=== PATIENT | male | born 1985 | race American Indian/Alaskan Native ===

== ENCOUNTER 2017-09-12 19:29 | Emergency (ER) | payer SELFPAY ==
[2017-09-12 19:54] VITALS: BP 119/76
--- NOTE | 2017-09-12 20:39 | Emergency Department Report ---
ED ENT HPI - General Chief complaint: Dental/Oral Stated complaint: MOUTH PAIN Time Seen by Provider: 09/12/17 20:18 Source: patient Mode of arrival: Ambulatory Limitations: No Limitations - History of Present Illness Initial comments: This is a 32-year-old male nontoxic, well nourished in appearance, no acute signs of distress presents to the ED with c/o of right-sided toothache 2 weeks. Patient denies any facial swelling, drooling, fever, chills, nausea, vomiting, headache or stiff neck. Patient denies falling over the dentist due to no availability's. Patient denies any allergies or significant past medical history. MD complaint: tooth pain -: week(s) (2) Location: tooth # 1 - toothache Severity: mild Severity scale (0 -10): 8 Quality: aching Consistency: constant Improves with: none Worsens with: none Associated Symptoms: gum swelling, toothache. denies: fever, cough, pain with swallowing, sore throat, tinnitus, hearing loss, discharge from ear, rhinorrhea - Related Data Previous Rx's Medication Instructions Recorded Last Taken Type Amoxicillin/K Clav Tab [Augmentin 1 tab PO Q12HR #20 tab 09/12/17 Unknown Rx 875 mg] Chlorhexidine Mouthwash [Peridex] 15 ml MM BID #1 bottle 09/12/17 Unknown Rx Ibuprofen [Motrin] 600 mg PO Q8H PRN #30 tablet 09/12/17 Unknown Rx Allergies Allergy/AdvReac Type Severity Reaction Status Date / Time No Known Allergies Allergy Unverified 09/12/17 19:46 ED Dental HPI - General Chief complaint: Dental/Oral Stated complaint: MOUTH PAIN Time Seen by Provider: 09/12/17 20:18 Source: patient Mode of arrival: Ambulatory Limitations: No Limitations - Related Data Previous Rx's Medication Instructions Recorded Last Taken Type Amoxicillin/K Clav Tab [Augmentin 1 tab PO Q12HR #20 tab 09/12/17 Unknown Rx 875 mg] Chlorhexidine Mouthwash [Peridex] 15 ml MM BID #1 bottle 09/12/17 Unknown Rx Ibuprofen [Motrin] 600 mg PO Q8H PRN #30 tablet 09/12/17 Unknown Rx Allergies Allergy/AdvReac Type Severity Reaction Status Date / Time No Known Allergies Allergy Unverified 09/12/17 19:46 ED Review of Systems ROS: Stated complaint: MOUTH PAIN Other details as noted in HPI Constitutional: denies: chills, fever Eyes: denies: eye pain, eye discharge, vision change ENT: dental pain. denies: ear pain, throat pain Respiratory: denies: cough, shortness of breath, wheezing Cardiovascular: denies: chest pain, palpitations Endocrine: no symptoms reported Gastrointestinal: denies: abdominal pain, nausea, diarrhea Genitourinary: denies: urgency, dysuria Musculoskeletal: denies: back pain, joint swelling, arthralgia Skin: denies: rash, lesions Neurological: denies: headache, weakness, paresthesias Psychiatric: denies: anxiety, depression Hematological/Lymphatic: denies: easy bleeding, easy bruising ED Past Medical Hx - Past Medical History Previous Medical History?: No - Surgical History Past Surgical History?: Yes Additional Surgical History: hernia repair - Social History Smoking Status: Current Every Day Smoker Substance Use Type: Alcohol, Marijuana - Medications Home Medications: Home Medications Medication Instructions Recorded Confirmed Last Taken Type Amoxicillin/K Clav Tab [Augmentin 1 tab PO Q12HR #20 tab 09/12/17 Unknown Rx 875 mg] Chlorhexidine Mouthwash [Peridex] 15 ml MM BID #1 bottle 09/12/17 Unknown Rx Ibuprofen [Motrin] 600 mg PO Q8H PRN #30 tablet 09/12/17 Unknown Rx ED Physical Exam - General Limitations: No Limitations General appearance: alert, in no apparent distress - Head Head exam: Present: atraumatic, normocephalic - Eye Eye exam: Present: normal appearance - ENT ENT exam: Present: mucous membranes moist, TM's normal bilaterally, normal external ear exam - Expanded ENT Exam Expanded Ear exam: Present: normal external inspection Mouth exam: Present: normal external inspection, tongue normal. Absent: drooling, trismus, muffled voice, tongue elevation, laceration Teeth exam: Present: dental caries, fractured tooth # (32), dental tenderness # (32), gingival enlargement, other (No abscess or facial swelling noted. ) 1 - Fractured, Dental Tenderness Throat exam: Positive: normal inspection. Negative: tonsillar erythema, tonsillomegaly, tonsillar exudate, R peritonsillar mass, L peritonsillar mass - Neck Neck exam: Present: normal inspection, full ROM. Absent: tenderness, meningismus, lymphadenopathy, thyromegaly - Respiratory Respiratory exam: Present: normal lung sounds bilaterally. Absent: respiratory distress, wheezes, rales, rhonchi, stridor, chest wall tenderness, accessory muscle use, decreased breath sounds, prolonged expiratory - Cardiovascular Cardiovascular Exam: Present: regular rate, normal rhythm. Absent: systolic murmur, diastolic murmur, rubs, gallop - GI/Abdominal GI/Abdominal exam: Present: soft, normal bowel sounds - Rectal Rectal exam: Present: deferred - Extremities Exam Extremities exam: Present: normal inspection - Back Exam Back exam: Present: normal inspection - Neurological Exam Neurological exam: Present: alert, oriented X3 - Psychiatric Psychiatric exam: Present: normal affect, normal mood - Skin Skin exam: Present: warm, dry, intact, normal color. Absent: rash ED Course Vital Signs 09/12/17 19:46 Temperature 99.3 F Pulse Rate 73 Respiratory 18 Rate Blood Pressure 119/76 O2 Sat by Pulse 99 Oximetry - Reevaluation(s) Reevaluation #1: 09/12/17 20:42 Patient is speaking in full sentences with no signs of distress noted. Critical care attestation.: If time is entered above; I have spent that time in minutes in the direct care of this critically ill patient, excluding procedure time. ED Disposition Clinical Impression: Dental caries, Gingivitis Disposition: DC-01 TO HOME OR SELFCARE Is pt being admited?: No Does the pt Need Aspirin: No Condition: Stable Instructions: Dental Caries (ED), Gingivitis (ED) Additional Instructions: Follow-up with a dentist in 3-5 days or if symptoms worsen and continue return to emergency room as soon as possible. Prescriptions: Amoxicillin/K Clav Tab [Augmentin 875 mg] 1 tab PO Q12HR #20 tab Chlorhexidine Mouthwash [Peridex] 15 ml MM BID #1 bottle Ibuprofen [Motrin] 600 mg PO Q8H PRN #30 tablet PRN Reason: Pain Referrals: PRIMARY CAREMD [Referring] - 3-5 Days CAROLE PATINO MD [Staff Physician] - 3-5 Days [facility] [Outside] - 3-5 Days Forms: Work/School Release Form(ED)
[2017-09-12] MEDS ORDERED: MOTRIN PO ONE (20:44)
== END 2017-09-12 20:50 | disposition home or self-care (01) ==
LOC: ED 19:29
DX: K05.10 Chronic gingivitis, plaque induced (principal); F17.200 Nicotine dependence, unspecified, uncomplicated; F12.10 Cannabis abuse, uncomplicated; K02.9 Dental caries, unspecified
CPT/HCPCS: 99282

== ENCOUNTER 2021-04-02 08:46 | Emergency (ER) | payer SELFPAY ==
[2021-04-02 10:02] VITALS: BP 146/90
[2021-04-02] MEDS ORDERED: HYDROcodone/ACETAMINOPHEN 5-325 MG TAB PO ONE (10:10)
--- NOTE | 2021-04-02 10:12 | Emergency Department Report ---
ED Lower Extremity HPI - General Chief Complaint: Extremity Injury, Lower Stated Complaint: SEVERE PAIN IN LT CALF Time Seen by Provider: 04/02/21 10:08 Source: patient Mode of arrival: Ambulatory Limitations: No Limitations - History of Present Illness Initial Comments: Patient presents with left leg pain. This is unilateral. It is described as an aching pain that is worsened over the last day or 2. There is no known trauma. Has no fevers or chills but there is no cough congestion. He has noticed swelling in the leg as well. His calf feels very tense and tight to him. He is never had this before. Patient states that he has no chest pain or shortness of breath. Is no pain or swelling about the knee. The pain is constant. It is worse with palpation, movement, and ambulation. He has not noticed any alleviating factors. Again, he has never had symptoms like this before. Patient has no history of recent travel or trauma. There is no family history immediately of DVT, but he believes that there are second-degree relatives with DVT. - Related Data Previous Rx's Medication Instructions Recorded Last Taken Type Amoxicillin/K Clav Tab [Augmentin 1 tab PO Q12HR #20 tab 09/12/17 04/01/21 Rx 875 mg] Chlorhexidine Mouthwash [Peridex] 15 ml MM BID #1 bottle 09/12/17 04/01/21 Rx Enoxaparin Sodium [Lovenox] 100 mg SQ BID #10 syringe 04/02/21 Unknown Rx HYDROcodone/APAP 5-325 [[place] 1 each PO Q6HR PRN #10 tablet 04/02/21 Unknown Rx 5/325] Warfarin [Coumadin] 5 mg PO QDAY #30 tablet 04/02/21 Unknown Rx Allergies Allergy/AdvReac Type Severity Reaction Status Date / Time No Known Allergies Allergy Verified 04/02/21 10:02 ED Review of Systems ROS: Stated complaint: SEVERE PAIN IN LT CALF Other details as noted in HPI Comment: All other systems reviewed and negative Constitutional: denies: fever Eyes: denies: eye pain ENT: denies: throat pain Respiratory: denies: cough Cardiovascular: denies: chest pain Endocrine: denies: unexplained weight gain Gastrointestinal: denies: abdominal pain Genitourinary: denies: dysuria Musculoskeletal: denies: back pain Skin: denies: rash Neurological: denies: headache Hematological/Lymphatic: denies: easy bruising ED Past Medical Hx - Past Medical History Previous Medical History?: No - Surgical History Additional Surgical History: hernia repair - Family History Family history: other (DVT and second-degree relative) - Social History Smoking Status: Current Every Day Smoker Substance Use Type: Alcohol, Marijuana, Other (We discussed tobacco cessation x3 minutes) - Medications Home Medications: Home Medications Medication Instructions Recorded Confirmed Last Taken Type Amoxicillin/K Clav Tab [Augmentin 1 tab PO Q12HR #20 tab 09/12/17 04/02/21 04/01/21 Rx 875 mg] Chlorhexidine Mouthwash [Peridex] 15 ml MM BID #1 bottle 09/12/17 04/02/21 04/01/21 Rx Enoxaparin Sodium [Lovenox] 100 mg SQ BID #10 syringe 04/02/21 Unknown Rx HYDROcodone/APAP 5-325 [[place] 1 each PO Q6HR PRN #10 tablet 04/02/21 Unknown Rx 5/325] Warfarin [Coumadin] 5 mg PO QDAY #30 tablet 04/02/21 Unknown Rx ED Physical Exam - General Limitations: No Limitations General appearance: alert, in no apparent distress - Head Head exam: Present: atraumatic, normocephalic, normal inspection - Eye Eye exam: Present: normal appearance, EOMI. Absent: scleral icterus - ENT ENT exam: Present: normal exam, normal external ear exam - Neck Neck exam: Present: full ROM. Absent: meningismus - Respiratory Respiratory exam: Absent: respiratory distress - Cardiovascular Cardiovascular Exam: Present: regular rate, normal rhythm, other (Normal pulses) - GI/Abdominal GI/Abdominal exam: Present: other (Flat) - Extremities Exam Extremities exam: Present: calf tenderness (Left side. Calf is tense. There is 1+ pitting edema on the left compared to the right.) - Back Exam Back exam: Absent: CVA tenderness (R), CVA tenderness (L) - Neurological Exam Neurological exam: Present: alert, oriented X3, abnormal gait (Antalgic). Absent: motor sensory deficit - Psychiatric Psychiatric exam: Present: normal affect, normal mood - Skin Skin exam: Present: warm, dry ED Course Vital Signs 04/02/21 10:01 Temperature 98.8 F Pulse Rate 99 H Respiratory 16 Rate Blood Pressure 146/90 [Right] O2 Sat by Pulse 99 Oximetry - Reevaluation(s) Reevaluation #1: 04/02/21 10:10 Venous Doppler was ordered. Analgesics were ordered. Old records reviewed. Reevaluation #2: 04/02/21 10:37 Verbal report from the radiologic technician states that the patient has a clot from his femoral vein down through the common peroneal. Labs have been ordered to evaluate platelets and renal function. Medications can be started. Reevaluation #3: 04/02/21 11:58 Radiology official report was noted. An addendum was required as the tech had reported a positive study and the radiologist read this as a negative study. The radiologic technician did discuss this with radiology and it was noted to be positive. Based on cost of medication, Lovenox and warfarin is the most inexpensive option for this treatment. This has been discussed with the patient. He was dosed with Lovenox here. He will be dosed with Lovenox and warfarin at home. He is referred to PCP for recheck as he does not have a primary care physician. ED Lower Extremity MDM - Lab Data Result diagrams: 04/02/21 10:44 04/02/21 10:44 - Medical Decision Making Patient presented secondary to nontraumatic leg pain. He was found to have DVT. He does not have cerulea dolens. Patient has no chest pain or shortness of breath or hypoxia. He does not have symptoms of a suggest pulmonary embolism. He was treated empirically with Lovenox and warfarin. He is referred to a primary care physician for outpatient follow-up and management. Etiology for the DVT is unknown. He has a remote family history but no other risk factor. Critical Care Time: No Critical care attestation.: If time is entered above; I have spent that time in minutes in the direct care of this critically ill patient, excluding procedure time. ED Disposition Clinical Impression: Pain of left calf, Leg edema, left, DVT (deep venous thrombosis) Disposition: 01 HOME / SELF CARE / HOMELESS Is pt being admited?: No Does the pt Need Aspirin: No Condition: Stable Instructions: Bleeding Precautions When on Anticoagulant Therapy, Adult, Deep Vein Thrombosis, Venous Thromboembolism Prevention Additional Instructions: Take the blood thinners. Drink plenty water. Return for problems. Follow-up with your regular doctor. Avoid green leafy vegetables. Prescriptions: Warfarin [Coumadin] 5 mg PO QDAY #30 tablet Enoxaparin Sodium [Lovenox] 100 mg SQ BID #10 syringe HYDROcodone/APAP 5-325 [[place] 5/325] 1 each PO Q6HR PRN #10 tablet PRN Reason: Pain Referrals: CAROLE ORLANDO MD [Staff Physician] - 3-5 Days
--- NOTE | 2021-04-02 10:49 | Vascular Lab Report ---
DUPLEX DOPPLER LOWER EXTREMITY VEINS, LEFT INDICATION: pain/swelling. TECHNIQUE: Duplex doppler imaging was performed through the veins of the left lower extremity using venous compr ession and other maneuvers. COMPARISON: No relevant prior imaging study available. FINDINGS: Left Common femoral vein: Negative. Left Superficial femoral vein: Negative. Left Popliteal vein: Negative. Left Calf veins: Negative. Additional findings: None.. IMPRESSION: 1. No sonographic evidence for DVT in the left lower extremity. Signer Name: Ho Shukla MD Signed: 04/02/2021 10:44 AM Workstation Name: [id number]
[2021-04-02 11:28] LABS: Hematocrit 47.1 % (35.5-45.6); Hemoglobin 15.7 gm/dl (11.8-15.2); Mean Corpuscular HGB Conc 33 % (32-34); Mean Corpuscular Volume 94 fl (84-94); Platelet Count 161 K/mm3 (140-440); Red Blood Count 5.04 M/mm3 (3.65-5.03); Red Cell Distribution Width 16.1 % (13.2-15.2)
[2021-04-02 11:50] LABS: BUN/Creatinine Ratio 11; Blood Urea Nitrogen 13 mg/dL (9-20); Calcium 9.8 mg/dL (8.4-10.2); Hemolysis Index 10
[2021-04-02] MEDS ORDERED: ENOXAPARIN 100 MG/1 ML INJ SUB-Q ONE (11:56)
== END 2021-04-02 12:57 | disposition home or self-care (01) ==
LOC: ED 08:46
DX: I82.402 Acute embolism and thrombosis of unspecified deep veins of left lower extremity (principal); F17.200 Nicotine dependence, unspecified, uncomplicated; F12.90 Cannabis use, unspecified, uncomplicated; Z72.89 Other problems related to lifestyle; Z98.890 Other specified postprocedural states; Z79.899 Other long term (current) drug therapy
CPT/HCPCS: 36415; 80048; 85027; 99284

== ENCOUNTER 2021-11-25 08:39 | Emergency (ER) | payer SELFPAY ==
--- NOTE | 2021-11-25 11:09 | Emergency Department Report ---
ED Chest Pain HPI - General Chief Complaint: Chest Pain Stated Complaint: PAIN IN CHEST Time Seen by Provider: 11/25/21 11:01 Source: patient Mode of arrival: Ambulatory Limitations: No Limitations - History of Present Illness Initial Comments: 36-year-old -[place] male patient presents with complaints of left-sided chest pain x1 week. Patient states the pain occurs only with movement of the arm and chest wall. He states the pain is reproducible with touch and rates it as a 7/10 in severity. He denies any cough, shortness of breath, hemoptysis, leg pain, or recent long travel. Patient states he was diagnosed with the DVT 3 to 4 months ago and took blood thinners for about 1-1/2 months. He states he did not complete his treatment. No prior heart history or family heart history per patient. 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, but denies any new swelling or pain - Related Data Previous Rx's Medication Instructions Recorded Last Taken Type Amoxicillin/K Clav Tab [Augmentin 1 tab PO Q12HR #20 tab 09/12/17 04/01/21 Rx 875 mg] Chlorhexidine Mouthwash [Peridex] 15 ml MM BID #1 bottle 09/12/17 04/01/21 Rx Enoxaparin Sodium [Lovenox] 100 mg SQ BID #10 syringe 04/02/21 Unknown Rx HYDROcodone/APAP 5-325 [[place] 1 each PO Q6HR PRN #10 tablet 04/02/21 Unknown Rx 5/325] Warfarin [Coumadin] 5 mg PO QDAY #30 tablet 04/02/21 Unknown Rx Apixaban [Eliquis] 5 mg PO BID 30 Days #60 tab 11/25/21 Unknown Rx Allergies Allergy/AdvReac Type Severity Reaction Status Date / Time No Known Allergies Allergy Verified 04/02/21 10:02 Heart Score - HEART Score History: Slightly suspicious EKG: Normal Age: < 45 Risk factors: 1-2 risk factors Troponin: < normal limit HEART Score: 1 - EKG Read Time Time EKG Completed: 09:00 EKG Read Time: 09:05 - Critical Actions Critical Actions: 0-3 pts:0.9-1.7%risk of adverse cardiac event.Candidate for discharge ED Review of Systems ROS: Stated complaint: PAIN IN CHEST Other details as noted in HPI Constitutional: denies: chills, fever Respiratory: denies: cough, shortness of breath, wheezing Cardiovascular: chest pain. denies: palpitations, dyspnea on exertion, edema, syncope Gastrointestinal: denies: abdominal pain, nausea, diarrhea Skin: denies: rash, lesions, change in color ED Past Medical Hx - Surgical History Additional Surgical History: hernia repair - Social History Smoking Status: Current Every Day Smoker Substance Use Type: Alcohol, Marijuana, Other (We discussed tobacco cessation x3 minutes) - Medications Home Medications: Home Medications Medication Instructions Recorded Confirmed Last Taken Type Amoxicillin/K Clav Tab [Augmentin 1 tab PO Q12HR #20 tab 09/12/17 04/02/21 04/01/21 Rx 875 mg] Chlorhexidine Mouthwash [Peridex] 15 ml MM BID #1 bottle 09/12/17 04/02/21 04/01/21 Rx Enoxaparin Sodium [Lovenox] 100 mg SQ BID #10 syringe 04/02/21 Unknown Rx HYDROcodone/APAP 5-325 [[place] 1 each PO Q6HR PRN #10 tablet 04/02/21 Unknown Rx 5/325] Warfarin [Coumadin] 5 mg PO QDAY #30 tablet 04/02/21 Unknown Rx Apixaban [Eliquis] 5 mg PO BID 30 Days #60 tab 11/25/21 Unknown Rx ED Physical Exam - General Limitations: No Limitations - Head Head exam: Present: atraumatic, normocephalic - Eye Eye exam: Present: normal appearance. Absent: scleral icterus - Neck Neck exam: Present: normal inspection, full ROM - Respiratory Respiratory exam: Present: normal lung sounds bilaterally, chest wall tenderness (left mid chest, no deforities noted ). Absent: respiratory distress, accessory muscle use - Cardiovascular Cardiovascular Exam: Present: regular rate, normal rhythm, normal heart sounds - GI/Abdominal GI/Abdominal exam: Present: soft. Absent: tenderness - Extremities Exam Extremities exam: Present: full ROM. Absent: calf tenderness - Back Exam Back exam: Present: normal inspection - Neurological Exam Neurological exam: Present: alert, oriented X3, normal gait - Psychiatric Psychiatric exam: Present: normal affect, normal mood - Skin Skin exam: Present: warm, dry, intact, normal color. Absent: rash ED Course Vital Signs 11/25/21 11/25/21 08:54 11:10 Temperature 98.2 F Pulse Rate 62 Respiratory 16 Rate Blood Pressure 129/84 O2 Sat by Pulse 100 Oximetry ED Medical Decision Making - Lab Data Result diagrams: 11/25/21 11:25 11/25/21 11:25 Lab Results 11/25/21 11/25/21 11/25/21 Range/Units 11:25 11:25 11:25 WBC 9.9 (4.5-11.0) K/mm3 RBC 4.63 (3.65-5.03) M/mm3 Hgb 14.6 (11.8-15.2) gm/dl Hct 44.3 (35.5-45.6) % MCV 96 H (84-94) fl MCH 32 (28-32) pg MCHC 33 (32-34) % RDW 15.8 H (13.2-15.2) % Plt Count 177 (140-440) K/mm3 Lymph % (Auto) 17.0 (13.4-35.0) % [place] % (Auto) 9.0 H (0.0-7.3) % Eos % (Auto) 0.3 (0.0-4.3) % Baso % (Auto) 0.6 (0.0-1.8) % Lymph # (Auto) 1.7 (1.2-5.4) K/mm3 [place] # (Auto) 0.9 H (0.0-0.8) K/mm3 Eos # (Auto) 0.0 (0.0-0.4) K/mm3 Baso # (Auto) 0.1 (0.0-0.1) K/mm3 Seg Neutrophils % 73.1 H (40.0-70.0) % Seg Neutrophils # 7.3 (1.8-7.7) K/mm3 D-Dimer 376.26 H (0-234) ng/mlDDU Sodium 137 (137-145) mmol/L Potassium 4.0 (3.6-5.0) mmol/L Chloride 100.2 (98-107) mmol/L Carbon Dioxide 28 (22-30) mmol/L Anion Gap 13 mmol/L BUN 9 (9-20) mg/dL Creatinine 1.3 (0.8-1.3) mg/dL Estimated GFR > 60 ml/min BUN/Creatinine Ratio 7 % Glucose 96 (75-100) mg/dL Calcium 9.3 (8.4-10.2) mg/dL Total Bilirubin 0.50 (0.1-1.2) mg/dL AST 17 (5-40) units/L ALT 14 (7-56) units/L Alkaline Phosphatase 55 (35-129) units/L Troponin T < 0.010 (0.00-0.029) ng/mL Total Protein 7.4 (6.3-8.2) g/dL Albumin 4.5 (3.9-5) g/dL Albumin/Globulin Ratio 1.6 % - Radiology Data Radiology results: report reviewed CHEST 2 VIEWS INDICATION / CLINICAL INFORMATION: chest pain. COMPARISON: None available. FINDINGS: SUPPORT DEVICES: None. HEART / MEDIASTINUM: No significant abnormality. LUNGS / PLEURA: No significant pulmonary abnormality. No significant pleural effusion. No pneumothorax. ADDITIONAL FINDINGS: No significant additional findings. IMPRESSION: 1. No acute abnormality of the chest. . CTA CHEST WITH CONTRAST INDICATION / CLINICAL INFORMATION: left sided chest pain, hx of dvt, +dimer. TECHNIQUE: Axial CT images were obtained through the chest after injection of IV contrast. 3 plane MIP and/or 3D reconstructions were produced. All CT scans at this location are performed using CT dose reduction for ALARA by means of automated exposure control. COMPARISON: None available. FINDINGS: PULMONARY EMBOLUS: Positive left lower lobe segmental and right middle lobe pulmonary arteries. Most proximal level of embolus is Left Subsegmental Pulmonary Artery. THORACIC AORTA: No significant abnormality. HEART: No significant abnormality. CORONARY ARTERY CALCIFICATION: Absent -- None. MEDIASTINUM / JONATHAN: No significant abnormality. PLEURA: No pleural effusion. No pneumothorax. LUNGS: No acute air space or interstitial disease. ADDITIONAL FINDINGS: Symmetric bilateral gynecomastia UPPER ABDOMEN: No acute findings. SKELETAL STRUCTURES: No significant osseous abnormality. IMPRESSION: 1. Small acute left lower lobe and right middle lobe segmental pulmonary emboli - Medical Decision Making 36-year-old -[place] male patient presents with complaints of left-sided chest pain x1 week. Patient states the pain occurs only with movement of the arm and chest wall. He states the pain is reproducible with touch and rates it as a 7/10 in severity. He denies any cough, shortness of breath, hemoptysis, leg pain, or recent long travel. Patient states he was diagnosed with the DVT 3 to 4 months ago and took blood thinners for about 1-1/2 months. He states he did not complete his treatment. No prior heart history or family heart history per patient. 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 Dimer is positive at 326. CTA chest shows small right subsegmental pulmonary embolism. Discussed patient with Dr. Garza-recommends p.o. Xarelyo and discharged home with close follow-up with primary care. Patient provided with Xarelto coupon and informed of importance of taking medication as prescribed. He continues to deny any shortness of breath and his vitals are within normal limits. Discussed in very great detail signs and symptoms that should prompt immediate emergency medicine evaluation, patient verbalizes understanding. Critical care attestation.: If time is entered above; I have spent that time in minutes in the direct care of this critically ill patient, excluding procedure time. ED Disposition Clinical Impression: Pulmonary embolism Disposition: HOME / SELF CARE / HOMELESS Is pt being admited?: No Condition: Stable Instructions: Pulmonary Embolism, Apixaban oral tablets Prescriptions: Apixaban [Eliquis] 5 mg PO BID 30 Days #60 tab Referrals: [facility] [Provider Group] - JASON SHANKS MD [Staff Physician] - JASON
[2021-11-25 11:10] VITALS: BP 129/84
--- NOTE | 2021-11-25 11:31 | XRay Report ---
CHEST 2 VIEWS INDICATION / CLINICAL INFORMATION: chest pain. COMPARISON: None available. FINDINGS: SUPPORT DEVICES: None. HEART / MEDIASTINUM: No significant abnormality. LUNGS / PLEURA: No significant pulmonary abnormality. No significant pleural effusion. No pneumothora x. ADDITIONAL FINDINGS: No significant additional findings. IMPRESSION: 1. No acute abnormality of the chest. Signer Name: José Villafana MD Signed: 11/25/2021 11:27 AM Workstation Name: [id number]
[2021-11-25 12:07] LABS: Basophils # (Auto) 0.1 K/mm3 (0.0-0.1); Basophils % (Auto) 0.6 % (0.0-1.8); Eosinophils % (Auto) 0.3 % (0.0-4.3); Hematocrit 44.3 % (35.5-45.6); Hemoglobin 14.6 gm/dl (11.8-15.2); Lymphocytes # (Auto) 1.7 K/mm3 (1.2-5.4); Mean Corpuscular HGB Conc 33 % (32-34); Mean Corpuscular Volume 96 fl (84-94); Monocytes # (Auto) 0.9 K/mm3 (0.0-0.8); Platelet Count 177 K/mm3 (140-440); Red Blood Count 4.63 M/mm3 (3.65-5.03); Red Cell Distribution Width 15.8 % (13.2-15.2)
[2021-11-25 12:14] LABS: Alanine Aminotransferase 14 units/L (7-56); Albumin 4.5 g/dL (3.9-5); BUN/Creatinine Ratio 7; Blood Urea Nitrogen 9 mg/dL (9-20); Calcium 9.3 mg/dL (8.4-10.2); Hemolysis Index 5
[2021-11-25] MEDS ORDERED: dexAMETHasone 20 MG/5 ML VIAL IV ONE (12:44)
--- NOTE | 2021-11-25 15:24 | Cat Scan Report ---
. CTA CHEST WITH CONTRAST INDICATION / CLINICAL INFORMATION: left sided chest pain, hx of dvt, +dimer. TECHNIQUE: Axial CT images were obtained through the chest after injection of IV contrast. 3 plane LA P and/or 3D reconstructions were produced. All CT scans at this location are performed using CT dose reduction for ALARA by means of automated exposure control. COMPARISON: None available. FINDINGS: PULMONARY EMBOLUS: Positive left lower lobe segmental and right middle lobe pulmonary arteries. Most proximal level of embolus is Left Subsegmental Pulmonary Artery. THORACIC AORTA: No significant abnormality. HEART: No significant abnormality. CORONARY ARTERY CALCIFICATION: Absent -- None. MEDIASTINUM / JONATHAN: No significant abnormality. PLEURA: No pleural effusion. No pneumothorax. LUNGS: No acute air space or interstitial disease. ADDITIONAL FINDINGS: Symmetric bilateral gynecomastia UPPER ABDOMEN: No acute findings. SKELETAL STRUCTURES: No significant osseous abnormality. IMPRESSION: 1. Small acute left lower lobe and right middle lobe segmental pulmonary emboli CRITICAL RESULT: Acute bilateral pulmonary emboli Time of Discovery (SEARCH MARKETING SPECIALIST/CDT): 2:15 PM Central time 11/25/2021 Time of Communication (SEARCH MARKETING SPECIALIST/CDT): 2:19 PM Licensed Practitioner Receiving Report: Wood Gage Read-Back Performed: Yes. Signer Name: Wade Bergman MD Signed: 11/25/2021 3:20 PM Workstation Name: [id number]
[2021-11-25 15:58] LABS: INR 0.91 (0.87-1.13)
[2021-11-25 15:59] LABS: Partial Thromboplastin Time 29.9 Sec. (24.2-36.6)
[2021-11-25] MEDS ORDERED: APIXABAN 5 MG TAB PO ONE (16:30)
[2021-11-25] MEDS ORDERED: RIVAROXABAN 20 MG TAB PO ONE (17:00)
--- NOTE | 2021-11-28 18:37 | Electrocardiograph Report ---
[facility] Test Date: 2021-11-25 Test Time: 08:58:13 Pat Name: CHYNA JOHNSON Department: Room: Gender: M Fiscal Accountant: MINESH : 1985 Requested By: JANESSA DANIELSON Order Number: [id number] Reading MD: Michele Bhakta Measurements Intervals [place] Rate: 72 P: 76 DC: 153 QRS: 72 QRSD: 74 T: 34 QT: 377 QTc: 414 Interpretive Statements Sinus rhythm Probable left atrial enlargement No previous ECG available for comparison Electronically Signed On 11-28-2021 18:37:33 EDT by Michele Bhakta
== END 2021-11-25 17:05 | disposition home or self-care (01) ==
LOC: ED 08:39
DX: I26.99 Other pulmonary embolism without acute cor pulmonale (principal); F17.200 Nicotine dependence, unspecified, uncomplicated; F10.20 Alcohol dependence, uncomplicated; F12.90 Cannabis use, unspecified, uncomplicated
CPT/HCPCS: 36415; 71046; 71275; 80053; 84484; 85025; 85379; 85610; 85730; 93005; 96374; 99284; J1100; Q9967

== ENCOUNTER 2022-04-02 16:58 | Emergency (ER) | payer OTHER | END 2022-04-02 18:01 | disposition left against medical advice (07) | LOC: ED 16:58 | DX: L02.91 Cutaneous abscess, unspecified (principal); Z53.21 Procedure and treatment not carried out due to patient leaving prior to being seen by health care provider ==